=== PATIENT | male | born 1995 | race Caucasian/White ===

== ENCOUNTER 2021-04-07 22:54 | Observation (INO) | payer SELFPAY ==
[2021-04-07 23:19] VITALS: BP 162/95; PULSE 116; RESP 20; TEMP 36.6; O2SAT 98; BMI 32.1
[2021-04-08] VITALS (92 sets, daily range): BP systolic 114–179; BP diastolic 72–105; PULSE 79–122; RESP 10–28; TEMP 36.4–37.1; O2SAT 94–99
--- NOTE | 2021-04-08 00:16 | W.ED.ABDPA2 ---
Documented by User: MADDY Helm 04/08/21 03:05 HPI - Abdominal Pain General: Chief Complaint: Abdominal Pain Stated Complaint: ABD CRAMPING Time Seen by Provider: 04/08/21 00:16 History of Present Illness: HPI narrative: 25-year-old male patient comes in today with complaints of epigastric pain. Patient reports that he has been having nausea and vomiting. Patient has been ill for about 1 week. Associated Symptoms: Reports nausea and vomiting Review of Systems General: Reports: 10 or more systems reviewed and unremarkable except in HPI and below GI: Reports: abdominal pain, nausea and vomiting Physical Exam Const: COMMON NORMALS: no acute distress and patient oriented x3 GENERAL APPEARANCE: cooperative HENMT: COMMON NORMALS: normocephalic and Normal external nose present HEAD & SCALP: normal to inspection and normocephalic NOSE: Normal external nose present MOUTH: Normal oral and palatal mucosa present THROAT: posterior oropharynx normal Eye: GENERAL EYE: appearance normal, both eyes and all related structures Neck/C-Spine: COMMON NORMALS: full ROM Lymph: LYMPHATIC: no lymphadenopathy noted Chest: COMMONS NORMALS: normal inspection of the chest Resp: COMMON NORMALS: normal respiratory effort EFFORT & INSPECTION: Yes able to speak in complete sentences Cardio: COMMON NORMALS: regular rate and regular rhythm RATE: regular rate RHYTHM: regular rhythm GI: COMMON NORMALS: Soft to palpation AUSCULTATION: Yes normoactive bowel sounds PALPATION: Yes Soft to palpation and Yes Tenderness to palpation present (GI) (generalized) : COMMON NORMALS: Yes no CVA tenderness BLADDER/KIDNEY EXAM: Yes no CVA tenderness Back/Pelvis: COMMON NORMALS: no CVA tenderness and thoracic and lumbar spine normal to inspection Extremity: COMMON NORMALS: normal to inspection Neuro: COMMON NORMALS: patient oriented x3 and moves all extremities Psych: COMMON NORMALS: mental status grossly normal and cooperative Skin: COMMON NORMALS: no rashes or lesions noted GENERAL SKIN EXAM: no rashes or lesions noted Course ED course: 299, CT shows appendicitis, reviewed with patient. Talked with who will assume care of patient at my end of shift. [email or web address] Vital Signs: Vital signs: Vital Signs Temperature 97.9 F 04/07/21 23:19 Pulse Rate 82 04/08/21 03:33 Respiratory Rate 17 04/08/21 03:33 Blood Pressure 133/87 04/08/21 03:33 Pulse Oximetry 97 04/08/21 03:33 MDM - Abdominal Pain Lab Data: Labs: Lab Results 04/08/21 04/08/21 04/08/21 Range/Units 00:40 00:40 02:55 WBC 19.1 H (4.0-10.0) 10^3/ uL RBC 6.11 H (4.1-5.3) 10^6/u L Hgb 18.6 H (11.7-16.6) g/dL Hct 52.7 H (42.0-52.0) % MCV 86.3 (80-94) fL MCH 30.4 (28.0-34.0) pg MCHC 35.3 (30.0-36.0) g/dL RDW 13.2 (12.1-15.1) % Plt Count 265 (130-400) 10^3/c mm MPV 10.4 (7.4-10.4) fL Neut % (Auto) 86.0 % Lymph % (Auto) 6.4 % [place] % (Auto) 6.7 % Eos % (Auto) 0.4 % Baso % (Auto) 0.2 % Neut # (Auto) 16.40 H (1.8-7.7) 10^3/u L Lymph # (Auto) 1.2 (0.8-4.8) 10^3/u L [place] # (Auto) 1.3 H (0.2-0.9) 10^3/u L Eos # (Auto) 0.1 (0.0-0.8) 10^3/u L Baso # (Auto) 0.0 (0.0-0.1) 10^3/u L Nucleated RBC % (a uto) 0 % Nucleated RBCs # 0.0 /100WBC Sodium 136 (136-145) mmol/L Potassium 4.0 (3.5-5.1) mmol/L Chloride 99 (98-107) mmol/L Carbon Dioxide 26 (22-29) mmol/L Anion Gap 15.0 (5-19) BUN 9 (6-20) mg/dL Creatinine 1.0 (0.7-1.2) mg/dL GFR Calculation 91.8 (90-130) mL/min Glucose 104 (65-115) mg/dL Calculated Osmolal ity 281 L (285-295) mOsm/k g Calcium 9.8 (8.5-10.5) mg/dL Total Bilirubin 0.9 (0.15-1.2) mg/dL AST 20 (0-40) U/L ALT 29 (0-41) U/L Alkaline Phosphata se 66 (40-130) IU/L Creatine Kinase 292 (39-308) U/L C-Reactive Protein 56.6 H (0.0-4.9) mg/L Total Protein 7.6 (6.6-8.7) g/dL Albumin 4.7 (3.5-5.2) g/dL Globulin 2.9 (1.3-4.6) g/dL Lipase 24 (13-60) U/L Urine Color Yellow (Yellow) Urine Appearance Clear (CLEAR) Urine pH 5 (5-7) Ur Specific Gravit y 1.005 (1.005-1.030) Urine Protein Trace (Negative) Urine Glucose (UA) Norm (Normal) Urine Ketones 1+ H (Negative) Urine Blood Neg (Negative) Urine Nitrate Negative (Negative) Urine Bilirubin 1+ H (Negative) Urine Urobilinogen Norm (Negative) mg/dL Ur Leukocyte Maria Antonia ase Negative (Negative) Urine RBC 0-4 H (0-2) /hpf Urine WBC 0-4 H (0-5) /hpf Ur Squamous Epith Cells 0-4 H (0-5) /hpf Amorphous Sediment Not Reportable Urine Bacteria Trace (NONE) /hpf Urine Mucus Trace /hpf Discharge Plan Discharge Patient Disposition: Placed in Observation Admit Provider: Adriano Ybarra Clinical Impression: Acute appendicitis Qualifiers: Acute appendicitis type: with localized peritonitis Appendicitis gangrene presence: without gangrene Appendicitis perforation presence: without perforation Appendicitis abscess presence: without abscess Qualified Code(s): K35.30 - Acute appendicitis with localized peritonitis, without perforation or gangrene Coding Level of Care Code ED Home Health Clinical Supervisor for g Fwd Exam Comprehensive Documented by User: Harvey Diaz, 04/08/21 03:49 HPI - Abdominal Pain General: Chief Complaint: Abdominal Pain Stated Complaint: ABD CRAMPING Time Seen by Provider: 04/08/21 00:16 Course Consultations: Consultation #1: Tate Vital Signs: Vital signs: Vital Signs Temperature 97.9 F 04/07/21 23:19 Pulse Rate 82 04/08/21 03:33 Respiratory Rate 17 04/08/21 03:33 Blood Pressure 133/87 04/08/21 03:33 Pulse Oximetry 97 04/08/21 03:33 MDM - Abdominal Pain MDM Narrative: Medical decision making narrative: 25-year-old male originally seen by MADDY Gan. I agree with his history, evaluation, and treatment. This patient has right-sided belly pain, white blood cell count of 19.1 and an elevated CRP. CT scan shows a 12 mm appendix with inflammation surrounding, suggesting acute appendicitis. No perforation or abscess. Spoke with the surgeon on-call. He is willing to admit. Lab Data: Labs: Lab Results 04/08/21 04/08/21 04/08/21 Range/Units 00:40 00:40 02:55 WBC 19.1 H (4.0-10.0) 10^3/ uL RBC 6.11 H (4.1-5.3) 10^6/u L Hgb 18.6 H (11.7-16.6) g/dL Hct 52.7 H (42.0-52.0) % MCV 86.3 (80-94) fL MCH 30.4 (28.0-34.0) pg MCHC 35.3 (30.0-36.0) g/dL RDW 13.2 (12.1-15.1) % Plt Count 265 (130-400) 10^3/c mm MPV 10.4 (7.4-10.4) fL Neut % (Auto) 86.0 % Lymph % (Auto) 6.4 % [place] % (Auto) 6.7 % Eos % (Auto) 0.4 % Baso % (Auto) 0.2 % Neut # (Auto) 16.40 H (1.8-7.7) 10^3/u L Lymph # (Auto) 1.2 (0.8-4.8) 10^3/u L [place] # (Auto) 1.3 H (0.2-0.9) 10^3/u L Eos # (Auto) 0.1 (0.0-0.8) 10^3/u L Baso # (Auto) 0.0 (0.0-0.1) 10^3/u L Nucleated RBC % (a uto) 0 % Nucleated RBCs # 0.0 /100WBC Sodium 136 (136-145) mmol/L Potassium 4.0 (3.5-5.1) mmol/L Chloride 99 (98-107) mmol/L Carbon Dioxide 26 (22-29) mmol/L Anion Gap 15.0 (5-19) BUN 9 (6-20) mg/dL Creatinine 1.0 (0.7-1.2) mg/dL GFR Calculation 91.8 (90-130) mL/min Glucose 104 (65-115) mg/dL Calculated Osmolal ity 281 L (285-295) mOsm/k g Calcium 9.8 (8.5-10.5) mg/dL Total Bilirubin 0.9 (0.15-1.2) mg/dL AST 20 (0-40) U/L ALT 29 (0-41) U/L Alkaline Phosphata se 66 (40-130) IU/L Creatine Kinase 292 (39-308) U/L C-Reactive Protein 56.6 H (0.0-4.9) mg/L Total Protein 7.6 (6.6-8.7) g/dL Albumin 4.7 (3.5-5.2) g/dL Globulin 2.9 (1.3-4.6) g/dL Lipase 24 (13-60) U/L Urine Color Yellow (Yellow) Urine Appearance Clear (CLEAR) Urine pH 5 (5-7) Ur Specific Gravit y 1.005 (1.005-1.030) Urine Protein Trace (Negative) Urine Glucose (UA) Norm (Normal) Urine Ketones 1+ H (Negative) Urine Blood Neg (Negative) Urine Nitrate Negative (Negative) Urine Bilirubin 1+ H (Negative) Urine Urobilinogen Norm (Negative) mg/dL Ur Leukocyte Maria Antonia ase Negative (Negative) Urine RBC 0-4 H (0-2) /hpf Urine WBC 0-4 H (0-5) /hpf Ur Squamous Epith Cells 0-4 H (0-5) /hpf Amorphous Sediment Not Reportable Urine Bacteria Trace (NONE) /hpf Urine Mucus Trace /hpf Discharge Plan Discharge Patient Disposition: Placed in Observation Admit Provider: Adriano Ybarra Clinical Impression: Acute appendicitis Qualifiers: Acute appendicitis type: with localized peritonitis Appendicitis gangrene presence: without gangrene Appendicitis perforation presence: without perforation Appendicitis abscess presence: without abscess Qualified Code(s): K35.30 - Acute appendicitis with localized peritonitis, without perforation or gangrene Coding Level of Care Code ED Home Health Clinical Supervisor for Chg Fwd Exam Comprehensive
[2021-04-08] MEDS: sodium chloride 0.9% 1,000 ML 999 ML IV ×2 (00:40→02:25)
[2021-04-08] MEDS: haloperidol inj 5 mg/mL INJ 1 mL 2.5 MG IVP (00:54)
[2021-04-08] MEDS: LORazepam 2 mg/mL INJ 1 mL 1 MG IVP (00:55)
[2021-04-08 01:04] LABS: Basophils % 0.2 %; Eosinophils # 0.1 10^3/uL (0.0-0.8); Eosinophils % 0.4 %; Hematocrit 52.7 % (42.0-52.0); Hemoglobin 18.6 g/dL (11.7-16.6); Lymphocytes # 1.2 10^3/uL (0.8-4.8); Lymphocytes % 6.4 %; Mean Corpuscular HGB Conc 35.3 g/dL (30.0-36.0); Mean Corpuscular Hemoglobin 30.4 pg (28.0-34.0); Mean Corpuscular Volume 86.3 fL (80-94); Mean Platelet Volume 10.4 fL (7.4-10.4); Monocytes # 1.3 10^3/uL (0.2-0.9); Monocytes % 6.7 %; Nucleated Red Blood Cells % 0 %; Platelet Count 265 10^3/cmm (130-400); Red Blood Count 6.11 10^6/uL (4.1-5.3); Red Cell Distribution Width 13.2 % (12.1-15.1); White Blood Count 19.1 10^3/uL (4.0-10.0)
--- NOTE | 2021-04-08 01:06 | CTR_ITS ---
PROCEDURE INFORMATION: Exam: CT Abdomen And Pelvis With Contrast Exam date and time: 04/08/2021 1:06 AM Age: 25 years old Clinical indication: Nausea and vomiting; Additional info: N/v, non-localized abd pain TECHNIQUE: Imaging protocol: Computed tomography of the abdomen and pelvis with contrast. Radiation optimization: All CT scans at this facility use at least one of these dose optimization techniques: automated exposure control; mA and/or kV adjustment per patient size (includes targeted exams where dose is matched to clinical indication); or iterative reconstruction. Contrast material: OMNI 300; Contrast volume: 95 ml; Contrast route: INTRAVENOUS (IV); COMPARISON: No relevant prior studies available. RADIATION DOSE METRICS: Total DLP (mGy-cm): 1743.04 FINDINGS: Liver: Normal. No mass. Gallbladder and bile ducts: Normal. No calcified stones. No ductal dilation. Pancreas: Normal. No ductal dilation. Spleen: Normal. No splenomegaly. Adrenal glands: Normal. No mass. Kidneys and ureters: Normal. No hydronephrosis. Stomach and bowel: Unremarkable. No obstruction. No mucosal thickening. Appendix: The appendix is abnormally dilated fluid-filled measuring up to 12.3 mm in diameter along the right pelvic sidewall. There are intraluminal calcifications present as well compatible with appendiculiths. Strandy and hazy opacities are seen in the adjacent fat and fascia compatible with inflammatory changes. These findings compatible with acute appendicitis. Intraperitoneal space: A small amount of fluid is seen in the dependent portion of the pelvis. Vasculature: Unremarkable. No abdominal aortic aneurysm. Lymph nodes: Unremarkable. No enlarged lymph nodes. Urinary bladder: Unremarkable as visualized. Reproductive: Unremarkable as visualized. Bones/joints: Unremarkable. No acute fracture. Soft tissues: Unremarkable. CT/CT abdomen pelvis w con* [id number] IMPRESSION: Prominent fluid-filled appendix surrounded by inflammatory changes within the adjacent fat and fascia, findings compatible with acute appendicitis. Radiation Dose CTDIVOL = (mGy): DLP = 1743.04 (mGy-cm)
--- NOTE | 2021-04-08 01:19 | PC.NURSE ---
Patient admits to stating to triage nurse that he was suicidal to be evaluated/seen by a provider. When patient asked by this nurse, he states that he is not suicidal just have crippling anxiety along with abdominal pain causing him to panic. He denies any thoughts of self harm or wanting to harm anyone else. Provider notified. Proceeding with ordered meds.
[2021-04-08 01:25] LABS: Alanine Aminotransferase 29 U/L (0-41); Albumin Level 4.7 g/dL (3.5-5.2); Alkaline Phosphatase 66 IU/L (40-130); Aspartate Amino Transferase 20 U/L (0-40); Blood Urea Nitrogen 9 mg/dL (6-20); C Reactive Protein 56.6 mg/L (0.0-4.9); Calcium 9.8 mg/dL (8.5-10.5); Carbon Dioxide 26 mmol/L (22-29); Chloride 99 mmol/L (98-107); Creatine Phosphokinase 292 U/L (39-308); Globulin 2.9 g/dL (1.3-4.6); Glomerular Filtration Rate 91.8 mL/min (90-130); Glucose 104 mg/dL (65-115); Lipase 24 U/L (13-60); Osmolality Calculated 281 mOsm/kg (285-295); Sodium 136 mmol/L (136-145); Total Bilirubin 0.9 mg/dL (0.15-1.2); Total Protein 7.6 g/dL (6.6-8.7)
--- NOTE | 2021-04-08 01:26 | PC.NURSE ---
Patient resting calmly after medication. VS trending. No outward s/s of anxiety noted.
[2021-04-08] MEDS: iohexol 300 mg/mL 100 mL Btl IV (01:54)
[2021-04-08] MEDS: fentaNYL 50 mcg/mL INJ 2mL 25 MCG IVP (02:28)
[2021-04-08 03:11] LABS: Add Urine Microscopic? YES; Bilirubin Urine 1+ (Negative); Blood Urine Neg (Negative); Glucose Urine UA Norm (Normal); Ketones Urine 1+ (Negative); Leukocyte Esterase Urine Negative (Negative); Nitrate Urine Negative (Negative); Protein Urine Trace (Negative); Specific Gravity, Urine 1.005 (1.005-1.030); Urine Appearance Clear (CLEAR); Urine Color Yellow (Yellow); Urobilinogen Urine Norm (Negative); pH Urine 5 (5-7)
[2021-04-08] MEDS: piperacillin-tazobactam 3.375 GM in sodium chloride 0.9% (plus) 50 ML IV ×2 (03:17→10:30)
[2021-04-08 03:23] LABS: Add Urine Culture? No; Bacteria Urine TRACE /hpf; Mucus Urine TRACE /hpf; RBC Urine 0-4 /hpf (0-2); Squamous Epithelial Cell Urine 0-4 /hpf (0-5); WBC Urine 0-4 /hpf (0-5)
--- NOTE | 2021-04-08 03:52 | PC.NURSE ---
Patient and girlfriend updated on POC, admit to 105.
[2021-04-08] MEDS: sodium chloride 0.9% 1,000 ML 150 ML IV (04:49)
--- NOTE | 2021-04-08 08:41 | ANES.PREANE2 ---
Pre-Anesthetic Assessment Pre-Anesthetic Assessment: Height/Weight: Height 1.8 m Weight 103.646 kg Temp Pulse Resp BP Pulse Ox 98.1 F 85 23 H 162/94 98 04/08/21 04:35 04/08/21 06:55 04/08/21 04:35 04/08/21 04:35 04/08/21 04:35 Preop Diagnosis: appendicitis Proposed Procedure: Operation Date: 04/08/21 09:35 Proposed Procedures p Laparoscopic Appendectomy(Not Applicable) - Adriano Ybarra MD Familial anesthetic complications: PONV, postop agitation Was Beta Shira taken within 24 hours: N/A Was Clonidine taken within 24 hours: N/A Last intake: NOne Social: Social History: No alcohol and No tobacco Exam: Pre-Anes Outpt Exam: alert, oriented x 3, clear to auscultation bilaterally and regular rate & rhythm Airway: Cervical ROM: WNL MP: 2 Dentition: Full Anesthetic Plan: ASA status: 1 Anesthesia: General Risk of > 500 ml blood loss (7ml/kg in children): No Meds/Allergies Current Medications: Current Medications Generic Name Dose Route Start Last Admin Trade Name Freq PRN Reason Stop Dose Admin Sodium Chloride 1,000 mls @ 150 m ls/hr 04/08/21 03:52 04/08/21 04:49 Sodium Chloride 0.9% IV 150 mls/hr .[id number] BRIANNA Administration Data Anesthesia CBC & Chem 7: 04/08/21 00:40 04/08/21 00:40 Other Labs: Laboratory Results - last 48 hr 04/08/21 04/08/21 04/08/21 00:40 00:40 02:55 WBC 19.1 H RBC 6.11 H Hgb 18.6 H Hct 52.7 H MCV 86.3 MCH 30.4 MCHC 35.3 RDW 13.2 Plt Count 265 MPV 10.4 Neut % (Auto) 86.0 Lymph % (Auto) 6.4 [place] % (Auto) 6.7 Eos % (Auto) 0.4 Baso % (Auto) 0.2 Neut # (Auto) 16.40 H Lymph # (Auto) 1.2 A[place] # (Auto) 1.3 H Eos # (Auto) 0.1 Baso # (Auto) 0.0 Nucleated RBC % (auto) 0 Nucleated RBCs # 0.0 Sodium 136 Potassium 4.0 Chloride 99 Carbon Dioxide 26 Anion Gap 15.0 BUN 9 Creatinine 1.0 GFR Calculation 91.8 Glucose 104 Calculated Osmolality 281 L Calcium 9.8 Total Bilirubin 0.9 AST 20 ALT 29 Alkaline Phosphatase 66 Creatine Kinase 292 C-Reactive Protein 56.6 H Total Protein 7.6 Albumin 4.7 Globulin 2.9 Lipase 24 Urine Color Yellow Urine Appearance Clear Urine pH 5 Ur Specific [place] 1.005 Urine Protein Trace Urine Glucose (UA) Norm Urine Ketones 1+ H Urine Blood Neg Urine Nitrate Negative Urine Bilirubin 1+ H Urine Urobilinogen Norm Ur Leukocyte Esterase Negative Urine RBC 0-4 H Urine WBC 0-4 H Ur Squamous Epith Cells 0-4 H Amorphous Sediment Not Reportable Urine Bacteria Trace Urine Mucus Trace Cardiac Studies: No Data to Display
--- NOTE | 2021-04-08 09:30 | P.HP_ITS ---
Providers/Chief Complaint Admitting Physician: Adriano Ybarra MD Chief Complaint: ABD CRAMPING History of Present Illness Vidal Pritchett is a 25 year old male who states that he has been having lower abdominal pain for the last 4 days. 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 Patient states that over the next couple of days he started having multiple episodes of vomiting associated nausea. He also has been constipated denies any diarrhea. He has had some chills and low-grade fevers. No similar episodes in the past. Review of Systems General: Reports: 10 or more systems reviewed and unremarkable except in HPI and below Medications/Allergies Allergies Allergy/AdvReac Type Severity Reaction Status Date / Time Sulfa (Sulfonamide Allergy Unknown Verified 04/08/21 00:54 Antibiotics) PFSH Acute PFSH: Surgical History History of open reduction and internal fixation (ORIF) procedure left clavicle right radius right tib/fib Vitals/I&O/Wt Last Vital Signs Temp 98.8 F 04/08/21 09:03 Pulse 97 04/08/21 09:03 Resp 16 04/08/21 09:03 BP 146/85 04/08/21 09:03 Pulse Ox 96 04/08/21 09:03 04/07/21 04/08/21 04/08/21 22:59 06:59 14:59 Intake Total 2669 / 2669 Balance 2669 / 2669 Weight last 48 hrs Weight 228 lb 8 oz Weight 230 lb Physical Exam Narrative: EXAM NARRATIVE: HEENT: Normocephalic Eye: Sclera /conjunctiva normal Respiratory and chest: Bilateral clear breath sounds on auscultation Cardiovascular: Normal S1 and S2 heart sounds Abdomen: Soft to palpation, tender right lower quadrant, voluntary guarding present, no rigidity Neurological: Oriented to place person and time Skin: Intact, no lesions appreciated on gross exam Data : 04/08/21 00:40 04/08/21 00:40 A&P Assessment and plan (1) Acute appendicitis: 25-year-old male who presents with 4-day history of right lower quadrant pain/suprapubic pain associated nausea and vomiting. His WBC was 19.1 CT abdomen pelvis showed acute appendicitis. Discussed findings with the patient Plan for laparoscopic possible open appendectomy Procedure, risks, benefits and alternatives have been discussed with the patient who wishes to proceed with surgery. Status: Acute Qualifiers: Acute appendicitis type: with localized peritonitis Appendicitis abscess presence: without abscess Appendicitis gangrene presence: without gangrene Appendicitis perforation presence: without perforation Qualified Code(s): K35.30 - Acute appendicitis with localized peritonitis, without perforation or gangrene Attestations Medical Necessity Statement*: Acute appendicitis Coding Level of Care Code Acute Monorail Crane Operator for [facility] Fw Diagnoses Acute appendicitis K35.30 Acute appendicitis type: with localized peritonitis Appendicitis abscess presence: without abscess Appendicitis gangrene presence: without gangrene Appendicitis perforation presence: without perforation
[2021-04-08] MEDS: scopolamine 1.5 Patch 1 PATCH TRANSDERMA (09:44)
[2021-04-08] MEDS: fentaNYL 50 mcg/mL INJ 2mL IVP ×2 (10:06→10:16)
--- NOTE | 2021-04-08 11:32 | P.OP_ITS ---
Operative Report Date of procedure: April 08, 2021 Pre-op Diagnosis: Acute appendicitis Post-op diagnosis: same Procedure Done: Laparoscopic appendectomy Specimens removed/disposition: Appendix Surgeon: Adriano Ybarra Anesthesia: General Condition: stable Disposition: PACU Procedure: The patient was taken to the Operating Room and intubated under general anesthesia after antibiotic had been administered. Using a 15 blade, a 1-cm infraumbilical incision was made and using open Lindsay technique, the peritoneal cavity was entered. A 12mm port with balloon was placed and 14 mm of pneumoperitoneum was created and 10-mm 30 degree scope was introduced. Two separate 5mm ports were placed in the left and right lower quadrant under direct visualization. The appendix was noted in the right lower quadrant and appeared acutely inflamed.. Using [place] forceps, an opening was made in the mesoappendix near the base of the appendix. An Endo OSMAN stapler 45mm long 3.5mm blue load was introduced to divide the appendix at it's base. Using electrocaute ry, the mesoappendix including the appendicular artery was divided. There was no bleeding noted and the staple line appeared intact. The right lower quadrant was irrigated with saline and an EndoCatch bag was introduced to remove the appendix. All three ports were removed under direct visualization and there was no bleeding noted on the port sites. 10 cc of 0.5% Marcaine was infiltrated at the port sites. The fascia at the umbilical port was closed using figure of eight 0-Vicryl sutures and subcutaneous tissue was approximated using 3-0 Vicryl and skin at all 3 port sites was closed using 4-0 Monocryl and Dermabond.
--- NOTE | 2021-04-08 11:33 | P.DS_ITS ---
Discharge Providers Date of Admission: 04/08/21 03:08 Date of Discharge: April 08, 2021 Attending Provider at Admission: Adriano Ybarra MD Attending Provider at Discharge: Adriano Ybarra MD Diagnoses at Discharge Discharge Diagnosis (1) Acute appendicitis: Status: Resolved Qualifiers: Acute appendicitis type: with localized peritonitis Appendicitis a bscess presence: without abscess Appendicitis gangrene presence: without gangrene Appendicitis perforation presence: without perforation Qualified Code(s): K35.30 - Acute appendicitis with localized peritonitis, without perforation or gangrene Reason for Visit Reason for Visit: ABD CRAMPING Hospital Course Hospital Course Vidal Pritchett is a 25 year old male who states that he has been having lower abdominal pain for the last 4 days. 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 Patient states that over the next couple of days he started having multiple episodes of vomiting associated nausea. He also has been constipated denies any diarrhea. He has had some chills and low-grade fevers. No similar episodes in the past. He was admitted for IV antibiotics and underwent laparoscopic appendectomy. At time of discharge his vital signs were stable he was tolerating a clear liquid diet and ambulating. His pain is controlled with oral pain medications. Discharge Data Data Completed and Pending: Completed Studies During Hospitalization Category Date Time Status CT abdomen pelvis w con* [id number] Stat Cat Scan 04/08/21 01:06 Completed Labs from last 24 hours 04/08/21 04/08/21 04/08/21 02:55 00:40 00:40 WBC 19.1 H RBC 6.11 H Hgb 18.6 H Hct 52.7 H MCV 86.3 MCH 30.4 MCHC 35.3 RDW 13.2 Plt Count 265 MPV 10.4 Neut % (Auto) 86.0 Lymph % (Auto) 6.4 [place] % (Auto) 6.7 Eos % (Auto) 0.4 Baso % (Auto) 0.2 Neut # (Auto) 16.40 H Lymph # (Auto) 1.2 [place] # (Auto) 1.3 H Eos # (Auto) 0.1 Baso # (Auto) 0.0 Nucleated RBC % (a uto) 0 Nucleated RBCs # 0.0 Sodium 136 Potassium 4.0 Chloride 99 Carbon Dioxide 26 Anion Gap 15.0 BUN 9 Creatinine 1.0 GFR Calculation 91.8 Glucose 104 Calculated Osmolal ity 281 L Calcium 9.8 Total Bilirubin 0.9 AST 20 ALT 29 Alkaline Phosphata se 66 Creatine Kinase 292 C-Reactive Protein 56.6 H Total Protein 7.6 Albumin 4.7 Globulin 2.9 Lipase 24 Urine Color Yellow Urine Appearance Clear Urine pH 5 Ur Specific Gravit y 1.005 Urine Protein Trace Urine Glucose (UA) Norm Urine Ketones 1+ H Urine Blood Neg Urine Nitrate Negative Urine Bilirubin 1+ H Urine Urobilinogen Norm Ur Leukocyte Maria Antonia ase Negative Urine RBC 0-4 H Urine WBC 0-4 H Ur Squamous Epith Cells 0-4 H Amorphous Sediment Not Reportable Urine Bacteria Trace Urine Mucus Trace Vitals: Last Vital Signs Temp 98.8 F 04/08/21 09:03 Pulse 97 04/08/21 09:03 Resp 17 04/08/21 10:16 BP 168/97 04/08/21 10:25 Pulse Ox 97 04/08/21 10:16 Discharge Plan Discharge Patient Disposition: Home Condition: Stable Prescriptions: New hydrocodone-acetaminophen 5-325 mg tablet 1 tab PO Q6H PRN (Reason: pain) Qty: 20 RF: 0 docusate sodium [Colace] 100 mg capsule 100 mg PO BID Qty: 30 RF: 0 ondansetron HCl [Zofran] 4 mg tablet 4 mg PO Q6H PRN (Reason: nausea and vomiting) Qty: 20 RF: 0 Discharge Orders: Discharge Order (Routine); Ordered 04/08/21 Ordered By: Adriano Ybarra Referrals: Adriano Ybarra MD [Physician] - 1 month Discharge Diet: Advance as tolerated Patient Instructions: Opioid Safety Activity Restrictions/Additional Instructions: Diet Advance to normal diet as tolerated, increase fluid intake as much as possible. Activity Avoid strenuous activity for 2 weeks but continue with daily activities including walking as tolerated. Do not lift more than 10 pounds for 2 weeks Return to work/school You can return to work/ school whenever you feel ready as long as you don?t have to lift more than 10 pounds at work. If you have paperwork that needs to be completed for time off from work, please contact my office Driving You can resume driving once you stop using narcotic pain medications, and transition to non-opioid pain medications like Tylenol, Motrin, Aleve, etc. Medications Pain Take opioid pain medications as prescribed and transition to non-opioid pain medications like Tylenol, Motrin, Aleve etc. over the next few days. The goal of the pain medications is to make the pain bearable and not to be pain free since you recently had surgery. Resume all home medications after surgery as per the medication reconciliation list Nausea Nausea is common after surgery, take nausea medications as needed and stay on a liquid bland diet until nausea resolves. Constipation The combination of surgery, anesthesia and pain medications can result in constipation. Take stool softeners as prescribed. If you do not have a bowel movement in 3 days, please take an [id number] laxative like MiraLAX to address the constipation. Shower It is ok to shower but avoid getting the wound wet for 48 hours after surgery. Do not soak in bathtub, swimming pool or hot tub for 2 weeks. Wound care If glue has been used on your incisions after surgery, the glue on the incision will peel slowly over the next two weeks. The stitches used are dissolvable and will not need to be removed. Do not apply antibiotics or other medications on the incision Problems with the wound: you can develop some redness around the incision from bruising after surgery. If there is increasing pain, redness, tenderness around the incision with or without drainage, please contact my office to rule out an infection. Sometimes the skin at the incisions can separate, resulting in reopening of the wound. Cover the wound with antibiotic cream and sterile dressings and contact my office. Contact physician Call the office at [phone] during office hours or go the Emergency Room ?Fever to 100.4 or greater ?Shaking chills ?Pain that increases over time ?Redness, warmth, or pus draining from incision sites ?Persistent nausea or inability to take in liquids Discharge Attestations Time Spent in Discharge Care*: less than 30 min Quality Metrics Clinical Quality Measures During this hospital stay, did patient experience: None Coding Level of Care Code Acute [facility] note Diagnoses Acute appendicitis K35.30 Acute appendicitis type: with localized peritonitis Appendicitis abscess presence: without abscess Appendicitis gangrene presence: without gangrene Appendicitis perforation presence: without perforation
[2021-04-08] MEDS: sodium chloride 0.9% 1,000 ML 100 ML IV (12:35)
--- NOTE | 2021-04-08 12:44 | PC.NURSE ---
Received patient from Surgery staff at 1215. Patient's vitals are within normal limits and charted. A/Ox4. No signs of bleeding present at laproscopy sites. Will continue to monitor. Awaiting new orders.
--- NOTE | 2021-04-08 13:58 | PC.NURSE ---
Discharged Patient. reviewed activity and medication education. Patient taken to vehicle via wheelchair. Family member provided ride. Pt signed pt signature form.
--- NOTE | 2021-04-08 14:25 | ANE.PACU2 ---
Inpatient post-anesthesia follow up: Airway intact: Yes Vital signs: Temperature 98.5 F Pulse Rate [Monito r] 116 Pulse Rate 100 Respiratory Rate 18 Blood Pressure [Le ft Arm] 162/95 Blood Pressure 172/105 Pulse Oximetry 96 Oxygen Delivery Me thod Room Air Oxygen Flow Rate 8 Fraction of Inspir ed Oxygen Hydration adequate: Yes Nausea and vomiting: No Pain level: 2 Mental status: Baseline
== END 2021-04-08 12:59 | disposition home or self-care (01) ==
LOC: ER 04-08 03:08 → CSU 04-08 03:26
PROVIDERS: Nurse Practitioner Family; Admitting Provider Surgery; Emergency Provider Emergency Medicine; Visit Provider Surgery
PROC: 0DTJ4ZZ Resection of Appendix, Percutaneous Endoscopic Approach (ICD-10-PCS; CPT 44970; principal; 2021-04-08 09:15)
DX: K35.891 Other acute appendicitis without perforation, with gangrene (principal)
CPT/HCPCS: 44970; 74177; 80053; 81001; 82550; 83690; 85025; 86140; 88304; 96361; 96365; 96367; 96374; 96375; 99285; G0378; J0330; J1100; J1630; J2060; J2250; J2405; J2543; J2550; J2704; J2710; J3010; J3490; J7030; Q9967